=== PATIENT | female | born 1990 ===

== ENCOUNTER 2017-06-13 16:20 | Observation (INO) | payer SELFPAY ==
[~2017-06-13] VITALS: Ht 167.6 cm; Wt 66.2 kg
[2017-06-13] MEDS ORDERED: PREN1TAB80 PO (18:25)
[2017-06-13 18:28] VITALS: BP 131/74
== END 2017-06-13 19:25 | disposition home or self-care (01) ==
LOC: 4S 16:20
PROVIDERS: ADMIT Obstetrics & Gynecology; ATTEND Obstetrics & Gynecology
DX: O26.853 Spotting complicating pregnancy, third trimester (principal); Z3A.35 35 weeks gestation of pregnancy
CPT/HCPCS: 59025; 76805; G0378